=== PATIENT | female | born 1935 | race Caucasian/White ===

== ENCOUNTER 2017-07-11 18:24 | Emergency (ER) | payer OTHER ==
[~2017-07-11] VITALS: Ht 160 cm; Wt 60.4 kg
[~2017-07-11 18:24] MED LIST: ARTHROTEC 751 TABLET PO; MAGNESIUM27 MG PO; MULTIVITAMINS1 EA11 PO; PRILOSEC; PRILOSEC20 MG PO; ZOCOR; ZOCOR10 MG PO
[2017-07-11 19:59] LABS: HEMATOCRIT 43.6 % (36.0-46.0); HEMOGLOBIN 14.8 G/DL (11.9-15.5); MCH 32.8 PG (29.0-34.0); MCHC 33.9 G/DL (30.0-36.0); MCV 96.7 FL (83-99); PLATELET COUNT 356 K/uL (156-360); RBC DIS.WIDTH-CV 13.2 % (11.8-14.6); RBC DIS.WIDTH-SD 47.6 % (39-53); RED BLOOD COUNT 4.51 M/uL (3.80-5.20); WHITE BLOOD COUNT 6.3 K/uL (4.1-10.2)
[2017-07-11 20:14] LABS: CHLORIDE 102 mEq/L (99-109); POTASSIUM 4.3 mEq/L (3.7-5.4); SODIUM 139 mEq/L (136-147)
[2017-07-11 20:16] LABS: GLUCOSE 115 mg/dL (70-99)
[2017-07-11 20:18] LABS: APPEARANCE CLEAR ((CLEAR)); BILIRUBIN NEGATIVE; BLOOD NEGATIVE; COLOR YELLOW ((YELLOW)); GLUCOSE (STRIP) NEGATIVE; KETONES NEGATIVE; LEUKOCYTES NEGATIVE; NITRITE NEGATIVE; PROTEIN (STRIP) 30; SPECIFIC GRAVITY 1.008 (1.000-1.030); UROBILINOGEN 0.2 MG/DL (0.2-1.0)
[2017-07-11 20:20] LABS: GFR ESTIMATE (CALCULATED) 56 mL/min/
[2017-07-11 20:21] LABS: UREA NITROGEN (BUN) 27 mg/dL (9-23)
[2017-07-11 20:28] LABS: TROP-I INTERPRETATION NEGATIVE; TROPONIN-I < 0.01 ng/mL (0.0-0.30)
[2017-07-12 01:16] LABS: APPEARANCE CLEAR/COLORLESS; CSF TUBE NUMBER TUBE #4; RED CELL COUNT 9 /MM^3 (0-1); WHITE CELL COUNT 3 /MM^3 (0-5)
[2017-07-12 01:22] LABS: CSF EOSINOPHILS 0 % (0-25); MONONUCLEAR WBC'S 100 % (50-90); POLYNUCLEAR WBC'S 0 % (0-3)
[2017-07-12 02:18] LABS: CSF PROTEIN 71 mg/dL (15-45)
[2017-07-12 02:23] LABS: GLUCOSE, CSF 68 mg/dL (40-80)
[2017-07-12] MEDS ORDERED: CEFDINIR300 MG PO (02:24)
[2017-07-12] MEDS ORDERED: MOTRIN600 MG PO (02:24)
[2017-07-12 02:49] VITALS: BP 166/67
== END 2017-07-12 02:51 | disposition home or self-care (01) ==
LOC: EME 18:24
PROVIDERS: Physician Assistant
PROC: 009U3ZX Drainage of Spinal Canal, Percutaneous Approach, Diagnostic (ICD-10-PCS; principal; 2017-07-11)
DX: R51 Headache (principal); R03.0 Elevated blood-pressure reading, without diagnosis of hypertension; J32.9 Chronic sinusitis, unspecified; R91.8 Other nonspecific abnormal finding of lung field; K21.9 Gastro-esophageal reflux disease without esophagitis; M19.90 Unspecified osteoarthritis, unspecified site; Z86.018 Personal history of other benign neoplasm; Z82.49 Family history of ischemic heart disease and other diseases of the circulatory system; Z90.710 Acquired absence of both cervix and uterus; Z96.653 Presence of artificial knee joint, bilateral; Z88.0 Allergy status to penicillin; Z88.5 Allergy status to narcotic agent
CPT/HCPCS: 70450; 71046; 80048; 81003; 82945; 84157; 84484; 85027; 87070; 87205; 89051; 93005; 99281; 99284